=== PATIENT | male | born 1935 | race African-American/Black ===

== ENCOUNTER → 2018-04-09 | Outpatient (CLI) | payer MEDICARE, OTHER ==
[2018-04-10 14:40] LABS: CREATININE URINE 119.9 mg/dL (Not Estab.); MICROALBUMIN URINE 21.1 ug/mL (Not Estab.)
== END ==
LOC: OD 12:28
PROVIDERS: ATTEND Internal Medicine Geriatric Medicine
DX: I10 Essential (primary) hypertension (principal); E11.65 Type 2 diabetes mellitus with hyperglycemia
CPT/HCPCS: 82043; 82570

== ENCOUNTER 2018-04-15 15:14 | Inpatient (IN) | payer MEDICARE, OTHER ==
[~2018-04-15 15:14] MED LIST: CALCIUM GLUCONATE 1000 MG/10 ML INJ IV ONE; EPINEPHRINE INJ 1 MG/10 ML DISP.SYRIN ONE; NOREPINEPHRINE BITARTRATE INJ/PF 4 MG/4 ML SDV IV ONE; SODIUM BICARBONATE 8.4% INJ 50 MEQ/50 ML DISP.SYRIN ONE
--- NOTE | 2018-04-15 15:40 | RADIOLOGY REPORT (SQ) ---
EXAM DESCRIPTION: CT HEAD WITHOUT COMPLETED DATE/TIME: 04/15/2018 3:29 pm REASON FOR STUDY: R arm weakness, slurred speech onset 11am today. COMPARISON: None. TECHNIQUE: Axial images acquired through the brain without intravenous contrast. Images reviewed wi th bone, brain and subdural windows. Additional sagittal and coronal reconstructions were generated. Images stored on PACS. All CT scanners at this facility use dose modulation, iterative reconstruction, and/or weight based d osing when appropriate to reduce radiation dose to as low as reasonably achievable (ALARA). [facility]: Dose Right [facility]: CareDose [facility]: Dose Right [facility]: Teradose 4D [facility]: Grabbit RADIATION DOSE: CT Rad equipment meets quality standard of care and radiation dose reduction techniq ues were employed. CTDIvol: 53.2 mGy. DLP: 991 mGy-cm. mGy. LIMITATIONS: None. FINDINGS: VENTRICLES: Normal size and contour for age. CEREBRUM: No CT evidence of acute large territory ischemic change, acute intracranial hemorrhage, mas s effect, or midline shift. Moderate bifrontal and biparietal chronic small vessel ischemic change in the hemispheric white matter. Old lacunar infarct in the right thalamus. CEREBELLUM: No masses. No hemorrhage. No alteration of density. No evidence for acute infarction. EXTRAAXIAL SPACES: No fluid collections. No masses. ORBITS AND GLOBE: No intra- or extraconal masses. Post bilateral cataract surgery. CALVARIUM: No fracture. PARANASAL SINUSES: No fluid or mucosal thickening. SOFT TISSUES: No mass or hematoma. OTHER: No other significant finding. 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 No acute findings . EVIDENCE OF ACUTE STROKE: NO. COMMENT: Pertinent findings on the imaging study reported as a CRITICAL RESULT to JESSICA HARDEN at 15:30 on 04/15/2018. Category of Critical Result: CT CODE STROKE Quality ID # [id number]: Final reports with documentation of one or more dose reduction techniques (e.g., Au tomated exposure control, adjustment of the mA and/or kV according to patient size, use of iterative reconstruction technique) TECHNICAL DOCUMENTATION: JOB ID: [id number] [employer]- All Rights Reserved Reading location - IP/workstation name: [email or web address]
--- NOTE | 2018-04-15 15:48 | ER Document Report ---
ED General - General Chief Complaint: Weakness Stated Complaint: WEAKNESS Time Seen by Provider: 04/15/18 15:34 Mode of Arrival: Ambulatory Information source: Patient Notes: 82-year-old male presents emergency department for slurred speech and right arm weakness. Family states that they noticed this at 1130. The patient states that he did not know that this was going on. Unknown what the time of onset was as the patient was alone prior to 1130. Patient contacted Dr. Mckinney's office and was told to go to the emergency department for an evaluation. Patient showed up here 4 hours after the daughter noticed his symptoms. She states that they have resolved. Patient no longer has slurred speech or right arm weakness. 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 Patient denies any fever, chills, chest pain, shortness of breath, abdominal pain, nausea, vomiting, diarrhea, dysuria. TRAVEL OUTSIDE OF THE [place] IN LAST 30 DAYS: No - HPI Onset: This morning Quality of pain: No pain Severity: None Pain Level: Denies Associated symptoms: None Exacerbated by: Denies Relieved by: Denies Similar symptoms previously: No Recently seen / treated by doctor: No - Related Data Allergies/Adverse Reactions: No Known Allergies Allergy (Unverified 04/15/18 21:42) Past Medical History - General Information source: Patient - Social History Smoking Status: Former Smoker Chew tobacco use (# tins/day): No Drug Abuse: None Family History: Reviewed & Not Pertinent Patient has suicidal ideation: No Patient has homicidal ideation: No Renal/ Medical History: Denies: Hx Peritoneal Dialysis Review of Systems - Review of Systems Constitutional: No symptoms reported EENT: No symptoms reported Cardiovascular: No symptoms reported Respiratory: No symptoms reported Gastrointestinal: No symptoms reported Genitourinary: No symptoms reported Male Genitourinary: No symptoms reported Musculoskeletal: No symptoms reported Skin: No symptoms reported Hematologic/Lymphatic: No symptoms reported Neurological/Psychological: Weakness, Speech impairment -: Yes All other systems reviewed and negative Physical Exam - Vital signs Vitals: Pulse Ox 100 04/15/18 15:32 - Notes Notes: PHYSICAL EXAMINATION: GENERAL: Well-appearing, well-nourished and in no acute distress. HEAD: Atraumatic, normocephalic. EYES: Pupils equal round and reactive to light, extraocular movements intact, sclera anicteric, conjunctiva are normal. ENT: Nares patent, oropharynx clear without exudates. Moist mucous membranes. NECK: Normal range of motion, supple without lymphadenopathy LUNGS: Breath sounds clear to auscultation bilaterally and equal. No wheezes rales or rhonchi. HEART: Tachycardic. S1-S2 appreciated. ABDOMEN: Soft, nontender, nondistended abdomen. No guarding, no rebound. No masses appreciated. Musculoskeletal: Normal range of motion, no pitting or edema. No cyanosis. NEUROLOGICAL: Cranial nerves grossly intact. Normal speech. Normal sensory, motor exams. Normal finger to nose. NIH of 0. PSYCH: Normal mood, normal affect. SKIN: Warm, Dry, normal turgor, no rashes or lesions noted. Course - Re-evaluation Re-evalutation: 04/15/18 16:21 NIH stroke score of 0. Patient's family say his symptoms resolved prior to arrival. EKG: Ventricular rate 115, OH interval 160, castration 104, QTc 443, sinus tachycardia. LVH. 04/15/18 18:39 Labs and imaging obtained. Head CT does not show an acute process. Creatinine is elevated at 1.89. Potassium is elevated at 5.4. I contacted the patient's primary care physician, Dr. Mckinney. He is agreeable with admitting the patient. Patient is currently stable without any complaints. I ordered kayexelate for the hyperkalemia and a 500cc bolus of fluids for the acute renal failure and tachycardia. - Vital Signs Vital signs: Temp Pulse Resp BP Pulse Ox 98.1 F 115 H 20 164/73 H 91 L 04/15/18 20:18 04/15/18 20:18 04/15/18 20:18 04/15/18 20:18 04/15/18 20:18 - Laboratory Result Diagrams: 04/15/18 16:20 04/15/18 16:20 Laboratory results interpreted by me: 04/15/18 04/15/18 04/15/18 16:20 16:20 16:41 WBC 10.8 H RBC 3.45 L Hgb 9.9 L Hct 30.5 L Seg Neuts % (Manual) 85 H Lymphocytes % (Manual) 5 L Abs Neuts (Manual) 9.2 H Sodium 145.3 H Potassium 5.4 H BUN 43 H Creatinine 1.89 H Est GFR ( Amer) 41 L Est GFR (Non-Af Amer) 34 L Glucose 171 H POC Glucose 161 H Calcium 10.9 H Total Bilirubin 1.6 H Direct Bilirubin 0.5 H ALT 13 L Creatine Kinase 48 L Total Protein 8.9 H Urine Protein Urine Urobilinogen Ur Leukocyte Esterase 04/15/18 17:25 WBC RBC Hgb Hct Seg Neuts % (Manual) Lymphocytes % (Manual) Abs Neuts (Manual) Sodium Potassium BUN Creatinine Est GFR ( Amer) Est GFR (Non-Af Amer) Glucose POC Glucose Calcium Total Bilirubin Direct Bilirubin ALT Creatine Kinase Total Protein Urine Protein 30 H Urine Urobilinogen 2.0 H Ur Leukocyte Esterase TRACE H Discharge - Discharge Clinical Impression: TIA (transient ischemic attack), Tachycardia Acute renal failure Qualifiers: Acute renal failure type: unspecified Qualified Code(s): N17.9 - Acute kidney failure, unspecified Condition: Stable Disposition: ADMITTED OBSERVATION [facility] Unit Admitted: [facility]
--- NOTE | 2018-04-15 16:39 | RADIOLOGY REPORT (SQ) ---
EXAM DESCRIPTION: CHEST SINGLE VIEW COMPLETED DATE/TIME: 04/15/2018 4:02 pm REASON FOR STUDY: bed 15 stroke alert COMPARISON: None. EXAM PARAMETERS: NUMBER OF VIEWS: One view. TECHNIQUE: Single frontal radiographic view of the chest acquired. RADIATION DOSE: NA LIMITATIONS: None. FINDINGS: LUNGS AND PLEURA: No opacities, masses or pneumothorax. No pleural effusion. MEDIASTINUM AND HILAR STRUCTURES: No masses. Contour normal. HEART AND VASCULAR STRUCTURES: Heart normal in size. Normal vasculature. BONES: No acute findings. HARDWARE: None in the chest. OTHER: No other significant finding. IMPRESSION: NO ACUTE RADIOGRAPHIC FINDING IN THE CHEST. TECHNICAL DOCUMENTATION: JOB ID: [id number] [employer]- All Rights Reserved Reading location - IP/workstation name: [email or web address]
[2018-04-15 16:52] LABS: INTERNATIONAL RATION (INR) 1.05; PROTHROMBIN TIME 14.2 SEC (11.4-15.4)
[2018-04-15 16:53] LABS: PARTIAL THROMBOPLASTIN TIME 31.4 SEC (23.5-35.8)
[2018-04-15 16:55] LABS: HEMATOCRIT 30.5 % (37.9-51.0); HEMOGLOBIN 9.9 g/dL (13.5-17.0); MEAN CORPUSCULAR HEMOGLOBIN 28.8 pg (27.0-33.4); MEAN CORPUSCULAR HGB CONC 32.5 g/dL (32.0-36.0); MEAN CORPUSCULAR VOLUME 89 fl (80-97); PLATELET COUNT 247 10^3/uL (150-450); RED BLOOD COUNT 3.45 10^6/uL (4.35-5.55); RED CELL DISTRIBUTION WIDTH 13.3 % (11.5-14.0); WHITE BLOOD COUNT 10.8 10^3/uL (4.0-10.5)
[2018-04-15 17:10] LABS: ALANINE AMINOTRANSFERASE 13 U/L (21-72); ALBUMIN 4.9 g/dL (3.5-5.0); ALKALINE PHOSPHATASE 84 U/L (38-126); ASPARTATE AMINO TRANSFERASE 34 U/L (17-59); BILIRUBIN,DIRECT 0.5 mg/dL (0.0-0.4); BILIRUBIN,TOTAL 1.6 mg/dL (0.2-1.3); BLOOD UREA NITROGEN 43 mg/dL (7-20); CALCIUM 10.9 mg/dL (8.4-10.2); CREATINE KINASE 48 U/L (55-170); GLUCOSE 171 mg/dL (75-110); POTASSIUM 5.4 mmol/L (3.6-5.0); TOTAL PROTEIN 8.9 g/dL (6.3-8.2)
[2018-04-15 17:14] LABS: ABSOLUTE LYMPHOCYTES# (MANUAL) 0.5 10^3/uL (0.5-4.7); ABSOLUTE MONOCYTES # (MANUAL) 1.1 10^3/uL (0.1-1.4); ABSOLUTE NEUTROPHILS# (MANUAL) 9.2 10^3/uL (1.7-8.2); BASOPHILS % (MANUAL) 0 % (0-2); EOSINOPHILS % (MANUAL) 0 % (0-6); LYMPHOCYTES % (MANUAL) 5 % (13-45); MONOCYTES % (MANUAL) 10 % (3-13); SEGMENTED NEUTROPHILS % (MAN) 85 % (42-78); TOTAL CELLS COUNTED 100
[2018-04-15 17:15] LABS: PLATELET COMMENT ADEQUATE; TOXIC GRANULATION SLIGHT
[2018-04-15 17:16] LABS: ANION GAP 19 (5-19); CARBON DIOXIDE 28 mmol/L (22-30); CHLORIDE 98 mmol/L (98-107); SODIUM 145.3 mmol/L (137-145)
[2018-04-15 17:28] LABS: CREATINE KINASE MB 2.64 ng/mL (<4.55); TROPONIN I 0.033 ng/mL
[2018-04-15 17:57] LABS: APPEARANCE,URINE CLOUDY; BILIRUBIN,URINE NEGATIVE (NEGATIVE); COLOR,URINE DARK YELLOW; GLUCOSE, URINE NEGATIVE (NEGATIVE); KETONES,URINE NEGATIVE (NEGATIVE); LEUKOCYTE ESTERASE,URINE TRACE (NEGATIVE); NITRITE,URINE NEGATIVE (NEGATIVE); PROTEIN,URINE 30 mg/dL (NEGATIVE); URINE SPECIFIC GRAVITY 1.024
[2018-04-15] MEDS ORDERED: SODIUM POLYSTYRENE SULFONATE 15 GM/60 ML PO ONE (18:16)
[2018-04-15] MEDS ORDERED: NORMAL SALINE 500 ML IV ONE (18:41)
[2018-04-15] MEDS ORDERED: ONDANSETRON HCL INJ/PF 4 MG/2 ML SDV IV ONE (19:21)
[2018-04-15] MEDS ORDERED: (PENDING PHARMACY ID) (Atenolol [Tenormin] 25 MG) PO SCH (21:30)
[2018-04-15] MEDS ORDERED: FELODIPINE 10 MG PO SCH (21:30)
--- NOTE | 2018-04-15 21:30 | PDOC H&P ---
History of Present Illness Admission Date/PCP: 04/15/18 18:47 JULIANA REINA Patient complains of: Slurred speech and right arm weakness. History of Present Illness: ARMANDO YAN is a 82 year old male patient known to my practice who presented to the ED earlier this morning following development of witnessed slurred speech and right arm weakness by spouse at home. reported that patient came down to their living room area earlier and received a phone call. He subsequently went into their kitchen and she noticed that his speech became slurred and patient was only able to answer yes or no more appropriately. She claimed that he subsequently developed right upper arm weakness. She call my ofice and she was directed to present to he ED immediately. He denied any preceding chest pain, palpitation, irregular heart beats, diaphoresis, or shortness of breath. No nausea, vomiting, or abdominal pain. He denied any fever or chills. No vertigo, headache or dizziness. His initial evaluation in the ED documented resolution of his presenting symptoms. His CT scan of brain was negative for any acute pathologic process. In view of his prior history of stroke with left upper paresis and morbidities including hypertension and diabetes mellitus type 2 he was advised hospitalization for further evaluation and management. Past Medical History Cardiac Medical History: Reports: Hypertension Endocrine Medical History: Reports: Diabetes Mellitus Type 2 Social History Smoking Status: Former Smoker Last Time Smoked: 1974 Frequency of Alcohol Use: Social Hx Recreational Drug Use: No Family History Family History: Reviewed & Not Pertinent Parental Family History Reviewed: Yes Children Family History Reviewed: Yes Sibling(s) Family History Reviewed.: Yes Medication/Allergy Home Medications: Atenolol [Tenormin] 25 mg PO DAILY 04/15/18 Brimonidine Tartrate [Alphagan 0.2% Oph Soln 5 ml] 1 drop OU DAILY 04/15/18 Ca Citrate/Mgox/Vit D3/B6/Min [Citracal Plus Tablet] 1 tab PO DAILY 04/15/18 Dorzolamide HCl [Trusopt Plus 2% Oph Soln 10 ml] 1 drop OU DAILY 04/15/18 Felodipine [Plendil] 10 mg PO DAILY 04/15/18 Lisinopril [Prinivil] 20 mg PO DAILY 04/15/18 Metformin HCl 850 mg PO BID 04/15/18 Simvastatin [Zocor 20 mg Tablet] 20 mg PO QHS 04/15/18 Review of Systems Constitutional: PRESENT: weakness - right arm. ABSENT: as per HPI, anorexia, chills, fatigue, fever(s), headache(s), night sweats, weight gain, weight loss, other Eyes: ABSENT: visual disturbances Ears: ABSENT: hearing changes Nose, Mouth, and Throat: ABSENT: as per HPI, headache(s), mouth pain, sore throat, vertigo, other Cardiovascular: ABSENT: chest pain, dyspnea on exertion, edema, orthropnea, palpitations Respiratory: ABSENT: cough, hemoptysis Gastrointestinal: ABSENT: abdominal pain, constipation, diarrhea, hematemesis, hematochezia, nausea, vomiting Genitourinary: ABSENT: dysuria, hematuria Musculoskeletal: PRESENT: muscle weakness - right arm Integumentary: ABSENT: rash, wounds Neurological: PRESENT: abnormal speech, focal weakness - right arm. ABSENT: as per HPI, abnormal gait, abnormal movements, confusion, convulsions, dizziness, frequent falls, lack of coordination, memory loss, numbness, paresthesias, restless legs, syncope, tingling, tremor(s), vertigo, weakness, other Psychiatric: ABSENT: anxiety, depression, homidical ideation, suicidal ideation Endocrine: ABSENT: cold intolerance, heat intolerance, polydipsia, polyuria Hematologic/Lymphatic: ABSENT: easy bleeding, easy bruising, lymphadenopathy Allergic/Immunologic: ABSENT: seasonal rhinorrhea Physical Exam Vital Signs: Temp Pulse Resp BP Pulse Ox 98.1 F 115 H 20 164/73 H 91 L 04/15/18 20:18 04/15/18 20:18 04/15/18 20:18 04/15/18 20:18 04/15/18 20:18 Intake & Output 04/14/18 04/15/18 04/16/18 06:59 06:59 06:59 Weight 83 kg General appearance: PRESENT: no acute distress, well-developed, well-nourished Head exam: PRESENT: atraumatic, normocephalic Eye exam: PRESENT: conjunctiva pink, EOMI, PERRLA. ABSENT: scleral icterus Ear exam: PRESENT: normal external ear exam Mouth exam: PRESENT: dry mucosa, neck supple, tongue midline Teeth exam: PRESENT: edentulous Neck exam: PRESENT: full ROM. ABSENT: carotid bruit, JVD, lymphadenopathy, thyromegaly Respiratory exam: PRESENT: clear to auscultation keyon, decreased breath sounds - at lung bases Cardiovascular exam: PRESENT: +S1, +S2, tachycardia. ABSENT: diastolic murmur, rubs, systolic murmur Pulses: PRESENT: +1 pedal pulses bilateral Vascular exam: PRESENT: normal capillary refill. ABSENT: pallor GI/Abdominal exam: PRESENT: normal bowel sounds, soft. ABSENT: distended, guarding, mass, organolmegaly, rebound, tenderness Rectal exam: PRESENT: deferred Extremities exam: ABSENT: pedal edema Musculoskeletal exam: PRESENT: deformity - related to multiple joints involvement with arthritis Neurological exam: PRESENT: alert, awake, oriented to person, oriented to place , oriented to time, oriented to situation, CN II-XII grossly intact, motor sensory deficit Psychiatric exam: PRESENT: appropriate affect, normal mood. 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 No acute findings. EVIDENCE OF ACUTE STROKE: NO. Chest X-Ray 04/15/18 15:32 IMPRESSION: NO ACUTE RADIOGRAPHIC FINDING IN THE CHEST. Assessment & Plan - Diagnosis (1) TIA (transient ischemic attack) Is this a current diagnosis for this admission?: Yes Plan: Patient will be admitted to cardiac monitored observation bed. We will obtain complete echocardiogram and carotid doppler evaluation in AM. Obtain CBC with diff, CMP, fasting Lipid panel, HgbA1c level in AM. (2) Acute kidney injury Is this a current diagnosis for this admission?: Yes Plan: Maintain on IV fluid support as blood pressure permits. Avoid nephrotoxic medications including Lisinopril and Metformin. (3) Acute hyperkalemia Is this a current diagnosis for this admission?: Yes Plan: Patient receives oral Kayaxelate therapy while in the ED for hyperkalemia management. Follow up on serum potassium level and manage accordingly. (4) HTN (hypertension) Qualifiers: Hypertension type: essential hypertension Qualified Code(s): I10 - Essential (primary) hypertension Is this a current diagnosis for this admission?: Yes Plan: Maintain on pre-admission medication management but hold off Lisinopril in view of his hyperkalemia and renal insufficiency upon presentation. Continue his Plendil and Metoprolol. (5) Diabetes mellitus type 2 in nonobese Is this a current diagnosis for this admission?: Yes Plan: Continue him on sliding scale Humalog insulin therapy until his oral intake is satisfactory to limit possible hypoglycemic events. (6) Hyperlipidemia associated with type 2 diabetes mellitus Is this a current diagnosis for this admission?: Yes Plan: Maintain on pre-admission medication management with dietary restrictions. (7) Osteoarthritis involving multiple joints on both sides of body Is this a current diagnosis for this admission?: Yes Plan: Continue supportive care and pain management as needed. Request PT / OT evaluation of his capabilities. - Time Time Spent: 50 to 70 Minutes Medications reviewed and adjusted accordingly: Yes Anticipated discharge: Home with Homehealth Within: Other - Inpatient Certification Based on my medical assessment, after consideration of the patient's comorbidities, presenting symptoms, or acuity I expect that the services needed warrant INPATIENT care.: Yes I certify that my determination is in accordance with my understanding of Medicare's requirements for reasonable and necessary INPATIENT services [42 CFR 412.3e].: Yes Medical Necessity: Need Close Monitoring Due to Risk of Patient Decompensation, Need For IV Fluids, Need For Continuous Telemetry Monitoring, Risk of Complication if Not Cared For in Hospital Post Hospital Care: D/C Control And Recovery Special Tactics Documentation - Plan Summary Plan Summary: See admitting attending physician orders as reflected on above care plan.
[2018-04-15] MEDS ORDERED: NORMAL SALINE 1000 ML 1,000 ML IV PRN (21:32)
[2018-04-15] MEDS ORDERED: DEXTROSE 40% GEL 15 GM TUBE PO PRN ×2 (21:32)
[2018-04-15] MEDS ORDERED: DEXTROSE 50%-WATER 25 GM/50 ML DISP.SYRIN IV PRN ×2 (21:32)
[2018-04-15] MEDS ORDERED: GLUCAGON,HUMAN RECOMB 1 MG INJ IM PRN (21:32)
[2018-04-15] MEDS ORDERED: INSULIN LISPRO 100 UNIT/ML 3 ML VIAL SUBCUT PRN (21:32)
[2018-04-15] MEDS ORDERED: ONDANSETRON HCL INJ/PF 4 MG/2 ML SDV IV PRN (21:42)
[2018-04-15] MEDS ORDERED: ACETAMINOPHEN 325 MG TABLET PO PRN (21:43)
[2018-04-15] MEDS ORDERED: ATENOLOL 50 MG TABLET PO SCH (22:00)
[2018-04-15] MEDS ORDERED: SIMVASTATIN 10 MG TABLET PO SCH (22:00)
[2018-04-15] MEDS ORDERED: AMLODIPINE BESYLATE 5 MG TABLET PO SCH (22:00)
[2018-04-15] MEDS ORDERED: HEPARIN SOD (PORCINE) 5,000 UNIT/ML 1 ML SYRINGE SUBCUT SCH (22:00)
[2018-04-16] MEDS ORDERED: METOPROLOL TARTRATE PF/INJ 5 MG/5 ML SDV IV ONE (00:45)
[2018-04-16] MEDS ORDERED: SODIUM BICARBONATE 8.4% INJ 50 MEQ/50 ML DISP.SYRIN ONE (01:24)
[2018-04-16] MEDS ORDERED: EPINEPHRINE INJ 1 MG/10 ML DISP.SYRIN ONE (01:38)
[2018-04-16] MEDS ORDERED: NOREPINEPHRINE BITARTRATE INJ/PF 4 MG/4 ML SDV IV ONE ×2 (01:46→03:02)
[2018-04-16] MEDS ORDERED: EPINEPHRINE INJ/PF 1 MG/1 ML AMPULE ONE ×3 (01:52→03:56)
[2018-04-16 02:18] LABS: BLOOD UREA NITROGEN 45 mg/dL (7-20); CALCIUM 10.2 mg/dL (8.4-10.2); GLUCOSE 135 mg/dL (75-110); POTASSIUM 5.3 mmol/L (3.6-5.0)
[2018-04-16 02:19] LABS: ANION GAP 24 (5-19); CARBON DIOXIDE 19 mmol/L (22-30); CHLORIDE 106 mmol/L (98-107); SODIUM 148.9 mmol/L (137-145)
[2018-04-16] MEDS ORDERED: IPRATROPIUM/ALBUTEROL 120 PUFF/4 GM MDI IH PRN (02:20)
[2018-04-16] MEDS ORDERED: MIDAZOLAM HCL 50 MG/100 ML RTUINJ IV PRN (02:22)
[2018-04-16 02:31] LABS: INTERNATIONAL RATION (INR) 1.58; PROTHROMBIN TIME 19.7 SEC (11.4-15.4)
[2018-04-16 02:32] LABS: PARTIAL THROMBOPLASTIN TIME 52.2 SEC (23.5-35.8)
--- NOTE | 2018-04-16 02:32 | Progress Note ---
Provider Note Provider Note: Patient developed cardiac arrest with respiratory failure necessitating ACLS protocol. Patient was eventually resuscitated after several doses of epinephrine , bicarbonate and IV fluid administration. Dr. Orellana assisted with ACLS protocol before my arrival. There was reported significant food material regurgitation and high concern for aspiration. He was transferred to ICU. I had extensive discussion with spouse who has been identified by patient on his office note regarding advance directive instruction. At this time she is in agreement to continue medical intervention but patient should be on DNR status subsequently. We will continue all other necessary medical care as outlined in my physician orders. Please see ACLS protocol documentation for further information.
[2018-04-16] MEDS ORDERED: DEXTROSE 50%-WATER 25 GM/50 ML DISP.SYRIN IV ONE (02:42)
[2018-04-16] MEDS ORDERED: INSULIN REG, HUMAN 100 UNIT/ML 3 ML VIAL (PYX) IV ONE (02:42)
[2018-04-16] MEDS ORDERED: CALCIUM CHLORIDE 10% PF/INJ 1000 MG/10 ML SDV IV ONE (02:45)
--- NOTE | 2018-04-16 02:49 | RADIOLOGY REPORT (SQ) ---
EXAM DESCRIPTION: XR CHEST 1 VIEW COMPLETED DATE/TME: 04/16/2018 00:00 CLINICAL HISTORY: 82 years, Male, INTUBATION, NG PLACEMENT COMPARISON: 04/15/2018 chest x-ray NUMBER OF VIEWS: 1 TECHNIQUE: Frontal view the chest LIMITATIONS: None. FINDINGS: Heart size is stable. Atheromatous change thoracic aorta. Interval intubation with the tip of the endotracheal tube 3.5 cm above the florentino. New airspace opacities are present bilaterally. No pneumothorax. Gaseous distention of the stomach. Overlying cardiac leads and wires. IMPRESSION: Interval intubation. New airspace opacities bilaterally, which could reflect pneumonia or pulmonary edema 2010 [employer]- All Rights Reserved
[2018-04-16] MEDS ORDERED: HYDROCORTISONE SOD SUCCINATE INJ/PF 100 MG/2 ML SDV IV ONE (03:00)
[2018-04-16 03:18] LABS: ABSOLUTE LYMPHOCYTES (AUTO) 0.2 10^3/uL (0.5-4.7); ABSOLUTE NEUT (AUTO) 0.2 10^3/uL (1.7-8.2); BASOPHILS % (AUTO) 0.2 % (0-2); EOSINOPHILS % (AUTO) 1.4 % (0-6); HEMATOCRIT 25.3 % (37.9-51.0); LYMPHOCYTES % (AUTO) 48.9 % (13-45); MEAN CORPUSCULAR HEMOGLOBIN 28.7 pg (27.0-33.4); MEAN CORPUSCULAR HGB CONC 30.7 g/dL (32.0-36.0); MONOCYTES % (AUTO) 2.3 % (3-13); PLATELET COUNT 159 10^3/uL (150-450); RED CELL DISTRIBUTION WIDTH 13.5 % (11.5-14.0); SEGMENTED NEUTROPHILS % (AUTO) 47.2 % (42-78); TOTAL CELLS COUNTED % (AUTO) 100 %
--- NOTE | 2018-04-16 03:18 | RADIOLOGY REPORT (SQ) ---
EXAM DESCRIPTION: XR CHEST 1 VIEW COMPLETED DATE/TME: 04/16/2018 00:00 CLINICAL HISTORY: 82 years, Male, CENTRAL LINE PLACEMENT COMPARISON: Prior chest x-ray from earlier on today's date NUMBER OF VIEWS: 1 TECHNIQUE: Frontal view the chest LIMITATIONS: None. FINDINGS: Interval placement of an enteric tube with the distal tip in the left upper quadrant, likely proximal stomach. Central venous catheter with the tip likely in the cavoatrial junction. There is a new right pneumothorax, with approximately 1.9 cm of pleural separation along the lateral right lung base. The heart size is stable. Atheromatous change thoracic aorta. Airspace opacities bilaterally, as before. IMPRESSION: Placement of an enteric tube and central venous catheter. New right-sided pneumothorax with maximal pleural separation 1.9 cm along the lateral right lung base. Other findings are stable. 2011 [employer]- All Rights Reserved
[2018-04-16] MEDS ORDERED: CALCIUM GLUCONATE 1000 MG/10 ML INJ IV ONE (03:27)
[2018-04-16] MEDS ORDERED: RINGERS SOLUTION,LACTATED 1,000 ML IV PRN (03:30)
[2018-04-16] MEDS ORDERED: CALCIUM GLUCONATE 1,000 MG in DEXTROSE 5%-WATER 50 ML IV ONE (03:30)
[2018-04-16] MEDS ORDERED: HYDROCORTISONE SOD SUCCINATE INJ/PF 100 MG/2 ML SDV ONE (03:40)
[2018-04-16 03:43] LABS: MEAN CORPUSCULAR VOLUME 94 fl (80-97)
[2018-04-16 03:43] LABS: ARTERIAL BLOOD FIO2 100%; ARTERIAL BLOOD H2CO3 1.82 mmol/L (1.05-1.35); ARTERIAL BLOOD HCO3 14.1 mmol/L (20-24); ARTERIAL BLOOD O2 SATURATION 98.9 % (94-98); ARTERIAL BLOOD PCO2 60.6 mmHg (35-45); ARTERIAL BLOOD PO2 223.9 mmHg (80-100); ARTERIAL BLOOD TOTAL CO2 15.9 mmol/L (23-27)
[2018-04-16 03:44] LABS: WHITE BLOOD COUNT 0.4 10^3/uL (4.0-10.5)
[2018-04-16 03:44] LABS: ARTERIAL BLOOD PH 6.98 (7.35-7.45)
[2018-04-16 03:45] LABS: HEMOGLOBIN 7.8 g/dL (13.5-17.0)
--- NOTE | 2018-04-16 03:45 | Progress Note ---
Provider Note Provider Note: Rashel Hawkins was called at 1:06 04/16, team arrived promptly, good chest compressions quality were a started. A total of 8 amp of epinephrine given, 2 A of bicarbonate, 1 amp of calcium gluconate. I/O establish at 125. Patient initially on asystole, transition to PEA, one episode of V. tach, 200 J given. Patient has achieved ROSC at 1:38am. We will continue with fluids and started levophed before transferring him to the ICU. One more epinephrine given before transfer to ICU. Once in the intensive care unit, started epinephrine infusion along with Levophed infusion. [place] [facility] requested an ABG. Chest x-ray was pending. Dr. Bennett from the surgical department was called for a central line placement. Overall very poor prognosis. Discussed with over the phone who was called during CPR and came promptly. Dr. Mckinney arrived before transferring to the intensive care unit, he discussed with family who made the patient DNR. I transferred care to Dr. Mckinney in the ICU. To follow laboratories and chest x-ray. Critical care time more than 60 minutes with patient at the bedside.
[2018-04-16 03:47] LABS: OVALOCYTES SLIGHT; PLATELET COMMENT ADEQUATE; POIKILOCYTOSIS SLIGHT; POLYCHROMASIA SLIGHT; SCHISTOCYTES SLIGHT
[2018-04-16] MEDS ORDERED: CLINDAMYCIN 600 MG/D5W RTU 600 MG/50 ML RTUPB IV SCH (06:00)
[2018-04-16] MEDS ORDERED: LANSOPRAZOLE 30 MG TAB.RAP.DR PO SCH (06:00)
[2018-04-16 06:21] VITALS: BP 79/49
[2018-04-16 06:38] LABS: ASPARTATE AMINO TRANSFERASE 671 U/L (17-59); DIRECT LDL 54 mg/dL (<100)
--- NOTE | 2018-04-16 07:19 | EKG REPORT ---
SEVERITY:- ABNORMAL ECG - SINUS TACHYCARDIA LVH WITH SECONDARY REPOLARIZATION ABNORMALITY CAN NOT R/O INF MD AGE INDETERMINATE : Confirmed by: Laurence Pritchard 16-Apr-2018 07:19:35
--- NOTE | 2018-04-16 07:20 | EKG REPORT ---
SEVERITY:- ABNORMAL ECG - SINUS TACHYCARDIA LVH WITH SECONDARY REPOLARIZATION ABNORMALITY CONSIDER ANTERIOR INFARCT : Confirmed by: Laurence Pritchard 16-Apr-2018 07:19:43
[2018-04-16] MEDS ORDERED: NORMAL SALINE 1000 ML 1,000 ML IV PRN (07:45)
[2018-04-16] MEDS ORDERED: DEXTROSE 5%-WATER 250 ML with NOREPINEPHRINE BITARTRATE 4 MG IV PRN ×2 (07:45)
[2018-04-16 07:57] LABS: ALANINE AMINOTRANSFERASE 647 U/L (21-72); ALBUMIN 2.3 g/dL (3.5-5.0); ALKALINE PHOSPHATASE 47 U/L (38-126); BILIRUBIN,DIRECT 0.5 mg/dL (0.0-0.4); BILIRUBIN,TOTAL 1.1 mg/dL (0.2-1.3); CHOLESTEROL 74.01 mg/dL (0-200); PHOSPHORUS 6.5 mg/dL (2.5-4.5); TOTAL PROTEIN 4.5 g/dL (6.3-8.2); TRIGLYCERIDES 41 mg/dL (<150)
--- NOTE | 2018-04-16 08:31 | OPERATIVE REPORT E ---
Operative Report NAME: ARMANDO YAN : 1935 AGE: 82Y DATE OF SURGERY: 04/16/2018 ROOM: 607 PREOPERATIVE DIAGNOSIS: Patient just coded from the floor and was just transferred to the intensive care unit intubated and needed a central line. POSTOPERATIVE DIAGNOSIS: Patient just coded from the floor and was just transferred to the intensive care unit intubated and needed a central line. OPERATION: Insertion of right internal jugular vein triple-lumen catheter under ultrasound guidance. SURGEON: GAURANG RODRIGUEZ M.D. ANESTHESIA: Sedation. DESCRIPTION OF PROCEDURE: Patient was placed in slight Trendelenburg position and the right neck exposed with the head turned to the left. The right neck was then prepped and draped in the usual sterile fashion. With use of the ultrasound, the right internal jugular vein was then identified and subsequently punctured and a guidewire passed through the needle towards the superior vena cava. Insertion site was dilated and a triple-lumen catheter inserted through the guidewire to a distance of about 16 cm. All the 3 ports aspirated blood easily and infused saline easily. The catheter was then anchored to the skin with 3-0 silk. Biopatch placed at the insertion site. A sterile transparent dressing was then placed over the Biopatch and guidewire. Chest x-ray will be performed for placement. DICTATING PHYSICIAN: GAURANG RODRIGUEZ M.D. [id number] PHY#: [id number] ID: [id number] JOB#: [id number] ACCT: [id number] cc:GAURANG RODRIGUEZ M.D. >
[2018-04-16] MEDS ORDERED: DORZOLAMIDE HCL 2% OPH SOLN 10 ML OU SCH (10:00)
[2018-04-16] MEDS ORDERED: CEFTRIAXONE 1 GM/D5W RTU 1 GM/50 ML RTUPB IV SCH (10:00)
[2018-04-16] MEDS ORDERED: HYDROCORTISONE SOD SUCCINATE INJ/PF 100 MG/2 ML SDV IV SCH (10:00)
[2018-04-16] MEDS ORDERED: PANTOPRAZOLE SODIUM 40 MG VIAL IV SCH (10:00)
[2018-04-16] MEDS ORDERED: CEFTRIAXONE SODIUM 1,000 MG in DEXTROSE 5%-WATER 50 ML IV SCH (10:00)
[2018-04-16] MEDS ORDERED: BRIMONIDINE TARTRATE 0.2% OPH SOLN 5 ML OU SCH (10:00)
[2018-04-16 11:39] LABS: PATH REVIEW PATHOLOGIST REVIEWED
== END 2018-04-16 04:35 | disposition expired | DRG 69 ==
LOC: ER 15:14 → EH 18:47 → 3S 20:10 → OBSVTOIN 04-16 01:51 → ICU 04-16 01:54
PROVIDERS: ADMIT Internal Medicine Geriatric Medicine; ATTEND Internal Medicine Geriatric Medicine
PROC: 5A2204Z Restoration of Cardiac Rhythm, Single (ICD-10-PCS; principal; 2018-04-16)
PROC: 0BH17EZ Insertion of Endotracheal Airway into Trachea, Via Natural or Artificial Opening (ICD-10-PCS; 2018-04-16)
PROC: 5A1935Z Respiratory Ventilation, Less than 24 Consecutive Hours (ICD-10-PCS; 2018-04-16)
PROC: 02HV33Z Insertion of Infusion Device into Superior Vena Cava, Percutaneous Approach (ICD-10-PCS; 2018-04-16)
PROC: B548ZZA Ultrasonography of Superior Vena Cava, Guidance (ICD-10-PCS; 2018-04-16)
DX: G45.9 Transient cerebral ischemic attack, unspecified (principal); J96.90 Respiratory failure, unspecified, unspecified whether with hypoxia or hypercapnia; N17.9 Acute kidney failure, unspecified; I46.9 Cardiac arrest, cause unspecified; Z66 Do not resuscitate; E87.5 Hyperkalemia; I10 Essential (primary) hypertension; E11.9 Type 2 diabetes mellitus without complications; M19.90 Unspecified osteoarthritis, unspecified site; Z79.899 Other long term (current) drug therapy; Z87.891 Personal history of nicotine dependence
CPT/HCPCS: 31500; 36415; 70450; 71045; 80048; 80053; 80061; 80076; 81001; 82550; 82553; 82803; 82962; 83036; 83735; 84100; 84484; 85025; 85610; 85730; 87040; 87086; 93005; 93010; 94002; 96361; 96374; 99285; C1751; J0171; J0610; J1644; J1720; J1815; J2405; J3490; J7030; J7040